=== PATIENT | female | born 1995 | race Caucasian/White ===

== ENCOUNTER 2019-12-24 09:02 | Emergency (ER) | payer OTHER ==
[~2019-12-24] VITALS: Ht 165.1 cm; Wt 61.2 kg
[2019-12-24] MEDS ORDERED: ZITHROMAX200 MG PO (11:46)
[2019-12-24] MEDS ORDERED: PRENATABS RX T1 EACH (11:57)
== END 2019-12-24 12:07 | disposition home or self-care (01) ==
LOC: ER 09:02
DX: O98.513 Other viral diseases complicating pregnancy, third trimester (principal); B96.0 Mycoplasma pneumoniae [M. pneumoniae] as the cause of diseases classified elsewhere; Z03.818 Encounter for observation for suspected exposure to other biological agents ruled out; O26.893 Other specified pregnancy related conditions, third trimester; R21 Rash and other nonspecific skin eruption; Z3A.29 29 weeks gestation of pregnancy

== ENCOUNTER 2020-02-15 12:45 | Inpatient (IN) | payer OTHER ==
[~2020-02-15] VITALS: Ht 165.1 cm; Wt 64.4 kg
[~2020-02-15 12:45] MED LIST: PRENATABS RX T1 EACH; ZITHROMAX200 MG PO
[2020-02-22] MEDS ORDERED: VALTREX1000 MG PO (12:19)
[2020-02-25] MEDS ORDERED: IBU600 MG PO (06:17)
== END 2020-02-25 13:36 | DRG 807 ==
LOC: LDR 02-22 11:22 → OB/GYN 02-22 18:30
PROVIDERS: ADMIT Specialist; ATTEND Specialist
PROC: 10E0XZZ Delivery of Products of Conception, External Approach (ICD-10-PCS; principal; 2020-02-22)
PROC: 0W8NXZZ Division of Female Perineum, External Approach (ICD-10-PCS; 2020-02-22)
PROC: 4A0HXFZ Measurement of Products of Conception, Cardiac Rhythm, External Approach (ICD-10-PCS; 2020-02-22)
DX: O80 Encounter for full-term uncomplicated delivery (principal); Z37.0 Single live birth; Z3A.37 37 weeks gestation of pregnancy

== ENCOUNTER 2020-04-01 16:20 | Emergency (ER) | payer OTHER ==
[~2020-04-01] VITALS: Ht 165.1 cm; Wt 52.2 kg
[~2020-04-01 16:20] MED LIST changes: +IBU600 MG PO; +VALTREX1000 MG PO
== END 2020-04-01 22:20 | disposition home or self-care (01) ==
LOC: ER 16:20
DX: N61.0 Mastitis without abscess (principal)

== ENCOUNTER 2022-06-20 09:13 | Inpatient (IN) | payer OTHER ==
[~2022-06-20] VITALS: Ht 165.1 cm; Wt 58.1 kg
[2022-06-20] MEDS ORDERED: VALACYCLOVIR500 MG PO (11:24)
[2022-06-20] MEDS ORDERED: PRENATAL MULTI1 EAC2 (14:01)
== END 2022-06-22 14:58 | disposition home or self-care (01) | DRG 798 ==
LOC: LDR 09:13 → OB/GYN 17:13
PROVIDERS: ADMIT Specialist; ATTEND Specialist
PROC: 10E0XZZ Delivery of Products of Conception, External Approach (ICD-10-PCS; principal; 2022-06-20)
PROC: 0W8NXZZ Division of Female Perineum, External Approach (ICD-10-PCS; 2022-06-20)
PROC: 4A1HXCZ Monitoring of Products of Conception, Cardiac Rate, External Approach (ICD-10-PCS; 2022-06-20)
PROC: 0UT70ZZ Resection of Bilateral Fallopian Tubes, Open Approach (ICD-10-PCS; 2022-06-21)
DX: O60.14X0 Preterm labor third trimester with preterm delivery third trimester, not applicable or unspecified (principal); Z37.0 Single live birth; Z3A.36 36 weeks gestation of pregnancy; Z30.2 Encounter for sterilization; Z20.822 Contact with and (suspected) exposure to COVID-19